=== PATIENT | male | born 1990 | race Caucasian/White ===

== ENCOUNTER 2018-01-08 18:02 | Emergency (ER) | payer SELFPAY ==
[~2018-01-08] VITALS: Ht 172.7 cm; Wt 77.1 kg
[2018-01-08 18:02] VITALS: BP_SYST 118
--- NOTE | 2018-01-08 18:02 | NUR ---
BROUGHT IN BY [facility], PLACED IN BED #7, REPORT GIVEN TO NURSE
--- NOTE | 2018-01-08 18:15 | NUR ---
Patient came in by EMS for Anxiety. Patient states he felt like his hearing was distant, and patient was overall feeling dizzy. States he has history of anxiety and this anxiety was unlike any attack he has had before. Patient is calm and non tearful.
--- NOTE | 2018-01-08 18:40 | NUR ---
JAQUAN NGUYEN AT BEDSIDE EVALUATING PT.
[2018-01-08] MEDS ORDERED: NACL 0.9% 1,000 ML IV ONE (19:00)
--- NOTE | 2018-01-08 19:00 | NUR ---
Patient resting comfortably. Vital signs are stable at this time. Patient states his symptoms have been decreasing. Patient took 0.5mg of Xanax prior to EMS transfer.
--- NOTE | 2018-01-08 19:03 | NUR ---
Report received from Krista EDUARDO
--- NOTE | 2018-01-08 19:12 | NUR ---
Patient does not wish to proceed with medical care recommended by JAQUAN NGUYEN. Patient given information related to possible complications, up to and including , which could occur as a result of leaving hospital at this time. Patient verbalizes understanding of risks involved leaving against medical advice. Patient has signed AMA form.
== END 2018-01-08 19:13 | disposition left against medical advice (07) ==
LOC: SED 18:02
DX: R55 Syncope and collapse (principal); Z53.21 Procedure and treatment not carried out due to patient leaving prior to being seen by health care provider
CPT/HCPCS: 99281